=== PATIENT | male | born 1970 | race Caucasian/White ===

== ENCOUNTER 2018-06-20 09:54 | Inpatient (IN) | payer OTHER ==
[2018-06-20 11:07] VITALS: BMI 20.3
--- NOTE | 2018-06-20 14:13 | HP ---
Admission [facility] - [facility] Chief Complaint: I WANT TO GO TO REHAB Allergies/Adverse Reactions: Allergies Allergy/AdvReac Type Severity Reaction Status Date / Time Fish Containing Products Allergy Severe Hives Verified 06/20/18 12:26 NKDA Allergy Uncoded 06/20/18 12:26 History of Present Illness: 48 YEARS OLD MALE WITH LONG HISTORY OF OPIATE NICOTINE DEPENDENCE HAS COPD HEPATITIS C TREATED CHRONIC SORE ON RIGHT ELBOW HAS ANXIETY AND DEPRESSION TREATED WITH CELEXA 40 MG PO DAILY IS ADMITTED TO REHAB Exam Limitations: No Limitations - Ebola screening Have you traveled outside of the country in the last 21 days: No Have you had contact with anyone from an Ebola affected area: No Have you been sick,other than usual withdrawal symptoms: No Do you have a fever: No - Review of Systems Constitutional: Loss of Appetite, Unintentional Wgt. Loss, Unexplained wgt Loss EENT: reports: Blurred Vision (EYE GLASSES) Respiratory: reports: SOB with Exertion, Productive cough Cardiac: reports: No Symptoms Reported GI: reports: Indigestion : reports: No Symptoms Reported Musculoskeletal: reports: Back Pain Integumentary: reports: No Symptoms Reported Neuro: reports: No Symptoms reported Endocrine: reports: No Symptoms Reported Hematology: reports: No Symptoms Reported Psychiatric: reports: Judgement Intact, Orientated x3, Anxious, Depressed Other Systems: Reviewed and Negative Patient History - Patient Medical History Hx Anemia: No Hx Asthma: No Hx Chronic Obstructive Pulmonary Disease (COPD): Yes Hx Cancer: No Hx Cardiac Disorders: No Hx Congestive Heart Failure: No Hx Hypertension: No Hx Hypercholesterolemia: No Hx Pacemaker: No HX Cerebrovascular Accident: No Hx Seizures: No Hx Dementia: No Hx Diabetes: No Hx Gastrointestinal Disorders: Yes Hx Liver Disease: No Hx Genitourinary Disorders: No Hx Sexually Transmitted Disorders: No Hx Renal Disease (ESRD): No Hx Thyroid Disease: No Hx Human Immunodeficiency Virus (HIV): No Hx Hepatitis C: Yes (TREATED) Hx Depression: Yes Hx Suicide Attempt: No Hx Bipolar Disorder: No Hx Schizophrenia: No - Patient Surgical History Past Surgical History: No Hx Neurologic Surgery: No Hx Cataract Extraction: No Hx Cardiac Surgery: No Hx Lung Surgery: No Hx Breast Surgery: No Hx Breast Biopsy: No Hx Abdominal Surgery: No Hx Appendectomy: No Hx Cholecystectomy: No Hx Genitourinary Surgery: No Hx Orthopedic Surgery: No - PPD History Previous Implant?: Yes Documented Results: Negative w/o proof Implanted On Prior [facility] Admission?: No PPD to be Administered?: Yes - Smoking Cessation Smoking history: Current every day smoker Have you smoked in the past 12 months: Yes Aproximately how many cigarettes per day: 20 Cigars Per Day: 0 Hx Chewing Tobacco Use: No Initiated information on smoking cessation: Yes 'Breaking Loose' booklet given: 06/20/18 - Substance & Tx. History Hx Alcohol Use: No Hx Substance Use: Yes Substance Use Type: Cocaine Hx Substance Use Treatment: Yes (2016 [facility]) - Substances Abused Heroin Route: Inhalation Frequency: 3-6 times per week Amount used: 6-8 bags Age of first use: 41 Date of Last Use: 06/16/18 Cocaine Route: Smoking Frequency: 1-3 times last 30 days Amount used: $40 Age of first use: 19 Date of Last Use: 06/19/18 street methadone Route: Oral Frequency: No use in 30 days Amount used: 10 mg. Age of first use: 48 Date of Last Use: 06/18/18 Family Disease History - Family Disease History Family Disease History: Respiratory: Mother (), Sister, Other: Father ( /HEADTRAUMA), Mother Admission Physical Exam [facility] - Vital Signs Vital Signs: Vital Signs - 24 hr 06/20/18 11:05 Temperature 98.9 F Pulse Rate 79 Respiratory 17 Rate Blood Pressure 120/75 - Physical General Appearance: Yes: Nourished, Appropriately Dressed, Thin HEENTM: Yes: Hearing grossly Normal, Normocephalic, Normal Voice, Other (EYE GLASSES) Respiratory: Yes: Chest Non-Tender, No Respiratory Distress, No Accessory Muscle Use, Hyperresonant, Inspiration Neck: Yes: Supple, Trachea in good position Breast: Yes: Breasts Symetrical, No Discharge Cardiology: Yes: Regular Rhythm, Regular Rate, S1, S2 Abdominal: Yes: Normal Bowel Sounds, Non Tender, Flat, Soft Genitourinary: Yes: Within Normal Limits Back: Yes: Normal Inspection Musculoskeletal: Yes: full range of Motion, Gait Steady Extremities: Yes: Normal Inspection, Normal Range of Motion, Non-Tender Neurological: Yes: Fully Oriented, Alert, Motor Strength 5/5, Normal Response, Depressed Affect Integumentary: Yes: Warm Lymphatic: Yes: Within Normal Limits - Diagnostic (1) Opioid dependence with withdrawal Current Visit: Yes Status: Acute (2) GERD (gastroesophageal reflux disease) Current Visit: Yes Status: Chronic Qualifiers: Esophagitis presence: without esophagitis Qualified Code(s): K21.9 - Gastro -esophageal reflux disease without esophagitis (3) Nicotine dependence Current Visit: Yes Status: Acute Qualifiers: Nicotine product type: cigarettes Substance use status: in withdrawal Qualified Code(s): F17.213 - Nicotine dependence, cigarettes, with withdrawal (4) COPD (chronic obstructive pulmonary disease) Current Visit: Yes Status: Chronic Qualifiers: COPD type: emphysema (5) Hepatitis C Current Visit: No Status: Resolved Qualifiers: Hepatic coma status: without hepatic coma Comment: TREATED NONE DETECTED (6) Skin abrasion Current Visit: Yes Status: Acute Comment: LEFT ELBOW (7) Depression (emotion) Current Visit: Yes Status: Suspected Qualifiers: Depression Type: dysthymia Qualified Code(s): F34.1 - Dysthymic disorder (8) Infection, fungal, left foot Current Visit: Yes Status: Chronic Cleared for Admission [facility] - Detox or Rehab [facility] Level of Care: Observation Bed Detox Regimen/Protocol: Not Applicable Claeared for Rehab Admission: Yes [facility] Breath Alcohol Content Breath Alcohol Content: 0 Urine Drug Screen - Results Drug Screen Negative: No Urine Drug Screen Results: SABRINA-Cocaine Inpatient Rehab Admission - Initial Determination Are CD services needed?: Yes Free of communicable disease: Yes Not in need of hospitalization: Yes - Rehab Admission Criteria Previous failed treatment: Yes Poor recovery environment: Yes Comorbidities: Yes Lacks judgement: No Patient is meeting Inpatient Rehab admission criteria:: Yes
[2018-06-20] MEDS ORDERED: MAGNESIUM HYDROX 2400MG/30ML ORAL SUSPENSION 30 ML CUP PO PRN (14:18)
[2018-06-20] MEDS ORDERED: MAGNESIUM CITRATE 300 ML BOTTLE PO PRN (14:18)
[2018-06-20] MEDS ORDERED: P-EPHED 60MG/TRIPROLIDI 2.5MG TABLET PO PRN (14:18)
[2018-06-20] MEDS ORDERED: guaiFENesin/D-METHORPHAN HB 10 ML UNIT-DOSE CUPS PO PRN (14:18)
[2018-06-20] MEDS ORDERED: LOPERAMIDE HCL 2 MG CAPSULE PO PRN (14:18)
[2018-06-20] MEDS ORDERED: MENTHOL/PHENOL 1 EACH UD MM PRN (14:18)
[2018-06-20] MEDS ORDERED: ACETAMINOPHEN 325 MG TABLET (FP) PO PRN (14:18)
[2018-06-20] MEDS ORDERED: ALBUTEROL SO4 8 GM HFA INHALER IH PRN (14:19)
[2018-06-20] MEDS ORDERED: ALBUTEROL SO4 0.083% IH SOL 2.5 MG/3 ML VIAL.NEB. NEB PRN (14:21)
[2018-06-20] MEDS ORDERED: BACITRACIN 0.9 GM PACKET TP ONE (15:15)
[2018-06-20 17:13] LABS: URINE APPEARANCE CLEAR; URINE BILIRUBIN NEGATIVE (<2.0 mg/dL); URINE COLOR YELLOW; URINE GLUCOSE (UA) NEGATIVE (NEGATIVE); URINE KETONE NEGATIVE (NEGATIVE); URINE LEUK ESTERASE NEGATIVE (NEGATIVE); URINE NITRITE NEGATIVE (NEGATIVE); URINE PROTEIN NEGATIVE (NEGATIVE); URINE UROBILINOGEN NEGATIVE mg/dL (0.2-1.0)
[2018-06-20] MEDS ORDERED: TUBERCULIN PPD 5 TU/0.1ML VIAL ID ONE ×2 (18:06→18:13)
[2018-06-20] MEDS: NICOTINE 21 MG/24 HOURS TOPICAL PATCH TD SCH (18:09)
--- NOTE | 2018-06-20 18:14 | PN ---
S Progress Note Note: Vital Signs Temperature 98.9 F 06/20/18 11:05 Pulse Rate 79 06/20/18 11:05 Respiratory Rate 17 06/20/18 11:05 Blood Pressure 120/75 06/20/18 11:05 O2 Sat by Pulse Oximetry (%) c/o of headache ibuprofen 400 mg PRN increase fluids continue to monitor
[2018-06-20] MEDS: IBUPROFEN 400 MG TABLET (FP) PO PRN (18:32)
[2018-06-20] MEDS: CLOTRIMAZOLE 1% CREAM 15 GM TUBE TP SCH (22:04)
[2018-06-20] MEDS: BUDESONIDE/FORMETEROL FUMARATE 80/4.5 mcg INHALER IH SCH (22:04)
[2018-06-20] MEDS: THIAMINE HCL 100 MG TABLET (FP) PO SCH (22:04)
[2018-06-21] MEDS: PRENATAL VITAMINS W/ FOLIC ACID TABLET (FP) PO SCH (10:02)
[2018-06-21] MEDS: CLOTRIMAZOLE 1% CREAM 15 GM TUBE TP SCH ×2 (10:03→21:42)
[2018-06-21] MEDS: BUDESONIDE/FORMETEROL FUMARATE 80/4.5 mcg INHALER IH SCH ×2 (10:03→21:43)
[2018-06-21] MEDS: NICOTINE 21 MG/24 HOURS TOPICAL PATCH TD SCH (10:03)
[2018-06-21 10:11] LABS: HEMATOCRIT 42.4 % (35.4-49); HEMOGLOBIN 14.4 GM/dL (11.7-16.9); MCH 31.3 pg (25.7-33.7); MEAN CELL VOLUME 92.2 fl (80-96); MEAN PLT VOLUME 9.6 fl (7.5-11.1); PLATELET COUNT 211 K/MM3 (134-434); RDW 14.9 % (11.9-15.9); WHITE BLOOD COUNT 10.5 K/mm3 (4.0-10.0)
[2018-06-21 10:12] LABS: CHLORIDE 104 mmol/L (98-107); POTASSIUM 4.5 mmol/L (3.5-5.1); SODIUM 142 mmol/L (136-145)
[2018-06-21 10:47] LABS: ALK PHOS 75 U/L (45-117); ANION GAP 9 (8-16); BILIRUBIN,TOTAL 0.6 mg/dL (0.2-1.0); BLOOD UREA NITROGEN 25 mg/dL (7-18); CALCIUM 9.3 mg/dL (8.5-10.1); CO2 29 mmol/L (21-32); CREATININE 1.1 mg/dL (0.7-1.3); GLUCOSE,RANDOM 103 mg/dL (74-106); SGOT/AST 30 U/L (15-37); SGPT/ALT 51 U/L (12-78); TOT PROT 7.5 g/dl (6.4-8.2)
[2018-06-21] MEDS: CITALOPRAM HYDROBROMIDE 20 MG TABLET (FP) PO SCH (12:14)
--- NOTE | 2018-06-21 12:40 | PN ---
[facility] Progress Note Note: Vital Signs - 8 hr 06/21/18 06:37 Temperature 98.0 F Pulse Rate 69 Respiratory 16 Rate Blood Pressure 134/88 Laboratory Last Values WBC 10.5 K/mm3 (4.0-10.0) H 06/21/18 06:00 RBC 4.60 M/mm3 (4.00-5.60) 06/21/18 06:00 Hgb 14.4 GM/dL (11.7-16.9) 06/21/18 06:00 Hct 42.4 % (35.4-49) 06/21/18 06:00 MCV 92.2 fl (80-96) 06/21/18 06:00 MCH 31.3 pg (25.7-33.7) 06/21/18 06:00 MCHC 34.0 g/dl (32.0-35.9) 06/21/18 06:00 RDW 14.9 % (11.9-15.9) 06/21/18 06:00 Plt Count 211 K/MM3 (134-434) 06/21/18 06:00 MPV 9.6 fl (7.5-11.1) 06/21/18 06:00 Sodium 142 mmol/L (136-145) 06/21/18 06:00 Potassium 4.5 mmol/L (3.5-5.1) 06/21/18 06:00 Chloride 104 mmol/L (98-107) 06/21/18 06:00 Carbon Dioxide 29 mmol/L (21-32) 06/21/18 06:00 Anion Gap 9 (8-16) 06/21/18 06:00 BUN 25 mg/dL (7-18) H 06/21/18 06:00 Creatinine 1.1 mg/dL (0.7-1.3) 06/21/18 06:00 Creat Clearance w eGFR > 60 (>60) 06/21/18 06:00 Random Glucose 103 mg/dL (74-106) 06/21/18 06:00 Calcium 9.3 mg/dL (8.5-10.1) 06/21/18 06:00 Total Bilirubin 0.6 mg/dL (0.2-1.0) 06/21/18 06:00 AST 30 U/L (15-37) 06/21/18 06:00 ALT 51 U/L (12-78) 06/21/18 06:00 Alkaline Phosphatase 75 U/L (45-117) 06/21/18 06:00 Total Protein 7.5 g/dl (6.4-8.2) 06/21/18 06:00 Albumin 4.0 g/dl (3.4-5.0) 06/21/18 06:00 Urine Color Yellow 06/20/18 16:58 Urine Appearance Clear 06/20/18 16:58 Urine pH 7.0 (5.0-8.0) 06/20/18 16:58 Ur Specific [place] 1.024 (1.001-1.035) 06/20/18 16:58 Urine Protein Negative (NEGATIVE) 06/20/18 16:58 Urine Glucose (UA) Negative (NEGATIVE) 06/20/18 16:58 Urine Ketones Negative (NEGATIVE) 06/20/18 16:58 Urine Blood Negative (NEGATIVE) 06/20/18 16:58 Urine Nitrite Negative (NEGATIVE) 06/20/18 16:58 Urine Bilirubin Negative (<2.0 mg/dL) 06/20/18 16:58 Urine Urobilinogen Negative mg/dL (0.2-1.0) 06/20/18 16:58 Ur Leukocyte Esterase Negative (NEGATIVE) 06/20/18 16:58 HIV 1&2 Antibody Screen Negative 06/20/18 13:40 HIV P24 Antigen Negative 06/20/18 13:40 reviewed continue to monitor
[2018-06-21] MEDS: THIAMINE HCL 100 MG TABLET (FP) PO SCH (21:43)
[2018-06-22] MEDS: NICOTINE 21 MG/24 HOURS TOPICAL PATCH TD SCH (09:54)
[2018-06-22] MEDS: PRENATAL VITAMINS W/ FOLIC ACID TABLET (FP) PO SCH (09:54)
[2018-06-22] MEDS: CLOTRIMAZOLE 1% CREAM 15 GM TUBE TP SCH ×2 (09:54→21:11)
[2018-06-22] MEDS: CITALOPRAM HYDROBROMIDE 20 MG TABLET (FP) PO SCH (09:54)
[2018-06-22] MEDS: BUDESONIDE/FORMETEROL FUMARATE 80/4.5 mcg INHALER IH SCH ×2 (10:04→21:10)
--- NOTE | 2018-06-22 11:32 | HP ---
Psychiatrist Admission - Data Date of interview: 06/22/18 Admission source: [facility] Identifying data: This is the first [facility] admission for this 48 years old male, employed seasonally as a e business consultant, homeless Medical History: Significant for COPD and history of treatment for hepatitis C. Smokes cigarettes 1 ppd Psychiatric History: Reports being diagnosed with anxiety 10 years ago. Reports having been on multiple trials of different medications including Depakote, Trazaddone and now Celexa which he claims is very effective. He reports that up to August 2017 he was receiving OPD care at [facility] and was prescribed Celexa 40 mg po daily. Reports that he has not compliant with medication mostly due to his addiction. Denies previous psychiatric hospitalization or suicidal attempt. At present, reports feeling very depressed and sleeping poorly. Requests to be ordered Trazadone 50 mg po HS for insomnia Physical/Sexual Abuse/Trauma History: Denies history of emotional, physical or sexual abuse as well as DV relationship. No service Additional Comment: Denies criminal history Vital Signs: Vital Signs - 24 hr 06/22/18 06/22/18 06/22/18 00:30 03:30 06:39 Temperature 98.6 F Pulse Rate 74 Respiratory 18 18 18 Rate Blood Pressure 138/89 Allergies/Adverse Reactions: Allergies Allergy/AdvReac Type Severity Reaction Status Date / Time Fish Containing Products Allergy Severe Hives Verified 06/20/18 12:26 No Known Drug Allergies Allergy Unknown Verified 06/20/18 15:02 NKDA Allergy Uncoded 06/20/18 12:26 Date of last physical exam: 06/20/18 Concur with the findings of this exam: Yes - Substance Abuse/Tx History Hx Alcohol Use: No Hx Substance Use: Yes Substance Use Type: Cocaine (Started smoking crack cocaine at age 19, consumes $ 40 woth 1-3 times in the last 30 days. Last smoked on 06/19/18), Heroin (Started using heroin at age 41, consumes 6-8 bags daily. Last used on 06/16/18), Opiates (Started using street methadone at age 48, consumes 10 mg occasionally. Last used on 06/18/18) Hx Substance Use Treatment: Yes (2 previous inpt & 3-4 inpt rehab admissions) Mental Status Exam - Mental Status Exam Alert and Oriented to: Time, Place, Person Cognitive Function: Fair Patient Appearance: Well Groomed Mood: Depressed, Sad Affect: Appropriate Patient Behavior: Cooperative Speech Pattern: Clear Voice Loudness: Normal Thought Process: Intact Thought Disorder: Not Present Hallucinations: Denies Suicidal Ideation: Denies Homicidal Ideation: Denies Insight/Judgement: Fair Sleep: Poorly Appetite: Fair Muscle strength/Tone: Normal Gait/Station: Normal Psychiatric Findings - Problem List ([place] 1, 2,3) (1) Opioid dependence Current Visit: Yes Status: Acute (2) Cocaine dependence Current Visit: Yes Status: Acute (3) Nicotine dependence Current Visit: Yes Status: Chronic Qualifiers: Nicotine product type: cigarettes Substance use status: in withdrawal Qualified Code(s): F17.213 - Nicotine dependence, cigarettes, with withdrawal (4) Substance induced mood disorder Current Visit: Yes Status: Acute (5) Substance induced mood disorder Current Visit: Yes Status: Acute (6) Substance-induced sleep disorder Current Visit: Yes Status: Acute (7) COPD (chronic obstructive pulmonary disease) Current Visit: Yes Status: Chronic Qualifiers: COPD type: emphysema (8) GERD (gastroesophageal reflux disease) Current Visit: Yes Status: Chronic Qualifiers: Esophagitis presence: without esophagitis Qualified Code(s): K21.9 - Gastro -esophageal reflux disease without esophagitis (9) Hepatitis C Current Visit: No Status: Resolved Qualifiers: Hepatic coma status: without hepatic coma Comment: TREATED NONE DETECTED - Initial Treatment Plan Initial Treatment Plan: 1) Resume Celexa 40 mg po daily. 2) Start Trazadone 50 mg po HS. 3) Monitor progress
--- NOTE | 2018-06-22 12:50 | EKG ---
Test Reason : Blood Pressure : / mmHG Vent. Rate : 069 BPM Atrial Rate : 069 BPM P-R Int : 140 ms QRS Dur : 078 ms QT Int : 428 ms P-R-T Axes : 067 058 064 degrees QTc Int : 458 ms NORMAL SINUS RHYTHM NORMAL ECG NO PREVIOUS ECGS AVAILABLE Confirmed by RAKEL CROWELL MD ([id number]) on 06/22/2018 12:49:29 PM Referred By: Confirmed By:RAKEL CROWELL MD
[2018-06-22] MEDS: IBUPROFEN 400 MG TABLET (FP) PO PRN (19:17)
[2018-06-22] MEDS: traZODone HCL 50 MG TABLET (FP) PO SCH (21:10)
[2018-06-22] MEDS: THIAMINE HCL 100 MG TABLET (FP) PO SCH (21:10)
[2018-06-23] MEDS: CLOTRIMAZOLE 1% CREAM 15 GM TUBE TP SCH ×2 (10:09→21:30)
[2018-06-23] MEDS: BUDESONIDE/FORMETEROL FUMARATE 80/4.5 mcg INHALER IH SCH ×2 (10:09→21:30)
[2018-06-23] MEDS: PRENATAL VITAMINS W/ FOLIC ACID TABLET (FP) PO SCH (10:09)
[2018-06-23] MEDS: CITALOPRAM HYDROBROMIDE 20 MG TABLET (FP) PO SCH (10:09)
[2018-06-23] MEDS: NICOTINE 21 MG/24 HOURS TOPICAL PATCH TD SCH (10:09)
[2018-06-23] MEDS: NICOTINE POLACRILEX 4 MG GUM BUC PRN ×2 (14:25→18:42)
--- NOTE | 2018-06-23 17:12 | PN ---
[facility] Progress Note Note: Call received from MARELY Kumar re: patient c/o of withdrawal re: anxious, irritable, sx and will like to start suboxone therapy. I-stop reviewed : Reference #: [id number] Others' Prescriptions Patient Name: Dipesh Dsouza Date: 1970 Address: [address] [place] [address] Sex: Male Rx Written Rx Dispensed Drug Quantity Days Supply Prescriber Name 10/01/2017 10/02/2017 suboxone 4 mg-1 mg sl film 30 30 Daryl Calabrese MD 09/02/2017 09/05/2017 suboxone 8 mg-2 mg sl film 60 30 Daryl Calabrese MD Patient Name: Dipesh Dsouza Date: 1970 Address: [address] [place] [address] Sex: Male Rx Written Rx Dispensed Drug Quantity Days Supply Prescriber Name 08/05/2017 08/05/2017 suboxone 8 mg-2 mg sl film 60 30 Daryl Calabrese MD 07/08/2017 07/08/2017 suboxone 8 mg-2 mg sl film 60 30 Daryl Calabrese MD Vital Signs Temperature 98.2 F 06/23/18 07:13 Pulse Rate 77 06/23/18 07:13 Respiratory Rate 18 06/23/18 07:13 Blood Pressure 118/87 06/23/18 07:13 O2 Sat by Pulse Oximetry (%) vistaril PRN ordered pne time dose clonidine 0.1 mg increase fluids Patient needs to follow up with counselor for link to Suboxone maitance program , last received suboxone 10/02/17 and patient needs reinduction to suboxone therapy. will continue to monitor
[2018-06-23] MEDS: hydrOXYzine PAMOATE 50 MG CAPSULE (FP) PO PRN ×2 (17:19→21:29)
[2018-06-23] MEDS ORDERED: cloNIDine HCL 0.1 MG TABLET PO ONE (17:30)
--- NOTE | 2018-06-23 17:50 | PN ---
S Progress Note Note: c/o nausea and vomiting reports by MARELY julian PRN fluids as tolerate continue to monitor
[2018-06-23] MEDS: ONDANSETRON *ODT* 4 MG TABLET SL PRN (18:18)
[2018-06-23] MEDS: traZODone HCL 50 MG TABLET (FP) PO SCH (21:29)
[2018-06-23] MEDS: THIAMINE HCL 100 MG TABLET (FP) PO SCH (21:29)
[2018-06-24] MEDS: hydrOXYzine PAMOATE 50 MG CAPSULE (FP) PO PRN ×3 (09:50→21:21)
[2018-06-24] MEDS: CITALOPRAM HYDROBROMIDE 20 MG TABLET (FP) PO SCH (09:57)
[2018-06-24] MEDS: PRENATAL VITAMINS W/ FOLIC ACID TABLET (FP) PO SCH (09:57)
[2018-06-24] MEDS: ONDANSETRON *ODT* 4 MG TABLET SL PRN ×3 (09:59→21:20)
[2018-06-24] MEDS: CLOTRIMAZOLE 1% CREAM 15 GM TUBE TP SCH ×2 (11:13→21:23)
[2018-06-24] MEDS: BUDESONIDE/FORMETEROL FUMARATE 80/4.5 mcg INHALER IH SCH ×2 (11:13→21:23)
[2018-06-24] MEDS: NICOTINE 21 MG/24 HOURS TOPICAL PATCH TD SCH (11:13)
--- NOTE | 2018-06-24 11:23 | PN ---
S Progress Note Note: withdrawal symptom nausea,pain body,back Vital Signs Temperature 98.7 F 06/24/18 06:56 Pulse Rate 69 06/24/18 06:56 Respiratory Rate 18 06/24/18 06:56 Blood Pressure 117/64 06/24/18 06:56 O2 Sat by Pulse Oximetry (%) flexeril 10 mgs po tid prn clonidine 0.1 mg po bid zofran 4 mg sl film prn for nausea and vomiting close monitoring
[2018-06-24] MEDS ORDERED: CYCLOBENZAPRINE HCL 10 MG TABLET (FP) PO ONE (11:45)
[2018-06-24] MEDS: NICOTINE POLACRILEX 4 MG GUM BUC PRN (15:08)
[2018-06-24] MEDS: IBUPROFEN 400 MG TABLET (FP) PO PRN ×2 (16:48→22:15)
[2018-06-24] MEDS: THIAMINE HCL 100 MG TABLET (FP) PO SCH (21:20)
[2018-06-24] MEDS: traZODone HCL 50 MG TABLET (FP) PO SCH (21:20)
[2018-06-24] MEDS: CYCLOBENZAPRINE HCL 10 MG TABLET (FP) PO PRN (21:21)
[2018-06-24] MEDS: MELATONIN 5 MG TABLETS PO PRN (21:21)
[2018-06-25] MEDS: ONDANSETRON *ODT* 4 MG TABLET SL PRN ×2 (09:45→21:06)
[2018-06-25] MEDS: IBUPROFEN 400 MG TABLET (FP) PO PRN (09:48)
[2018-06-25] MEDS: CITALOPRAM HYDROBROMIDE 20 MG TABLET (FP) PO SCH (09:48)
[2018-06-25] MEDS: PRENATAL VITAMINS W/ FOLIC ACID TABLET (FP) PO SCH (09:48)
[2018-06-25] MEDS: NICOTINE 21 MG/24 HOURS TOPICAL PATCH TD SCH (09:49)
[2018-06-25] MEDS: CLOTRIMAZOLE 1% CREAM 15 GM TUBE TP SCH ×2 (09:49→21:47)
[2018-06-25] MEDS: BUDESONIDE/FORMETEROL FUMARATE 80/4.5 mcg INHALER IH SCH ×2 (09:52→21:47)
--- NOTE | 2018-06-25 10:32 | PN ---
S Progress Note Note: withdrawal symptom pain in the body,back,nausea,vomiting with diarrhea Vital Signs Temperature 98.8 F 06/25/18 06:46 Pulse Rate 69 06/25/18 06:46 Respiratory Rate 18 06/25/18 06:46 Blood Pressure 118/75 06/25/18 06:46 O2 Sat by Pulse Oximetry (%) pain in the body and back treatment flexeril 10 mgs po tid prn clonidine 0.1 mg po bid vistaril 50 mgs po q 6 hrs prn for vomiting close monitoring
[2018-06-25] MEDS: NICOTINE POLACRILEX 4 MG GUM BUC PRN (10:46)
[2018-06-25] MEDS: CYCLOBENZAPRINE HCL 10 MG TABLET (FP) PO PRN ×3 (10:46→21:05)
[2018-06-25] MEDS: cloNIDine HCL 0.1 MG TABLET PO SCH ×2 (10:46→21:04)
[2018-06-25] MEDS: hydrOXYzine PAMOATE 50 MG CAPSULE (FP) PO PRN (14:53)
[2018-06-25] MEDS: traZODone HCL 50 MG TABLET (FP) PO SCH (21:04)
[2018-06-25] MEDS: THIAMINE HCL 100 MG TABLET (FP) PO SCH (21:04)
[2018-06-25] MEDS: MELATONIN 5 MG TABLETS PO PRN (21:05)
[2018-06-26] MEDS: cloNIDine HCL 0.1 MG TABLET PO SCH ×2 (09:59→21:06)
[2018-06-26] MEDS: PRENATAL VITAMINS W/ FOLIC ACID TABLET (FP) PO SCH (09:59)
[2018-06-26] MEDS: CLOTRIMAZOLE 1% CREAM 15 GM TUBE TP SCH ×2 (09:59→21:08)
[2018-06-26] MEDS: CITALOPRAM HYDROBROMIDE 20 MG TABLET (FP) PO SCH (09:59)
[2018-06-26] MEDS: BUDESONIDE/FORMETEROL FUMARATE 80/4.5 mcg INHALER IH SCH ×2 (10:00→21:08)
[2018-06-26] MEDS: NICOTINE 21 MG/24 HOURS TOPICAL PATCH TD SCH (10:02)
[2018-06-26] MEDS: CYCLOBENZAPRINE HCL 10 MG TABLET (FP) PO PRN ×2 (10:03→17:27)
[2018-06-26] MEDS: IBUPROFEN 400 MG TABLET (FP) PO PRN (17:27)
[2018-06-26] MEDS: NICOTINE POLACRILEX 4 MG GUM BUC PRN (17:28)
[2018-06-26] MEDS: THIAMINE HCL 100 MG TABLET (FP) PO SCH (21:06)
[2018-06-26] MEDS: traZODone HCL 50 MG TABLET (FP) PO SCH (21:06)
[2018-06-26] MEDS: hydrOXYzine PAMOATE 50 MG CAPSULE (FP) PO PRN (21:07)
[2018-06-27] MEDS: CYCLOBENZAPRINE HCL 10 MG TABLET (FP) PO PRN ×2 (07:29→15:11)
[2018-06-27] MEDS: BUDESONIDE/FORMETEROL FUMARATE 80/4.5 mcg INHALER IH SCH ×2 (09:53→21:08)
[2018-06-27] MEDS: NICOTINE POLACRILEX 4 MG GUM BUC PRN (09:53)
[2018-06-27] MEDS: CITALOPRAM HYDROBROMIDE 20 MG TABLET (FP) PO SCH (09:53)
[2018-06-27] MEDS: NICOTINE 21 MG/24 HOURS TOPICAL PATCH TD SCH (09:53)
[2018-06-27] MEDS: PRENATAL VITAMINS W/ FOLIC ACID TABLET (FP) PO SCH (09:53)
[2018-06-27] MEDS: hydrOXYzine PAMOATE 50 MG CAPSULE (FP) PO PRN (09:57)
[2018-06-27] MEDS: cloNIDine HCL 0.1 MG TABLET PO SCH ×2 (09:57→21:08)
[2018-06-27] MEDS: CLOTRIMAZOLE 1% CREAM 15 GM TUBE TP SCH ×2 (10:33→21:08)
[2018-06-27] MEDS: MAG HYDROX/AL HYDROX/SIMETH 30 ML UNIT-DOSE CUP PO PRN (18:24)
--- NOTE | 2018-06-27 19:06 | PN ---
[facility] Progress Note Note: Psychiatrist consulting networking engineer note: Called by nursing staff requesting an increase in Trazadone dosage on behalf of patient. According to nursing staff, patient complains of sleeping poorly despite taking Trazadone 50 mg at bedtime. Trazadone dosage is increased to 100 mg po HS
[2018-06-27] MEDS: THIAMINE HCL 100 MG TABLET (FP) PO SCH (21:08)
[2018-06-27] MEDS: traZODone HCL 100 MG TABLET (FP) PO SCH (21:09)
[2018-06-27] MEDS: MELATONIN 5 MG TABLETS PO PRN (21:09)
[2018-06-28] MEDS: IBUPROFEN 400 MG TABLET (FP) PO PRN ×2 (08:02→16:06)
[2018-06-28] MEDS: CYCLOBENZAPRINE HCL 10 MG TABLET (FP) PO PRN ×3 (08:03→21:07)
[2018-06-28] MEDS ORDERED: PT OWN MED DRAWER 7, Y5N ONE (09:00)
[2018-06-28] MEDS: PRENATAL VITAMINS W/ FOLIC ACID TABLET (FP) PO SCH (10:02)
[2018-06-28] MEDS: NICOTINE 21 MG/24 HOURS TOPICAL PATCH TD SCH ×2 (10:02→10:05)
[2018-06-28] MEDS: cloNIDine HCL 0.1 MG TABLET PO SCH ×2 (10:02→21:05)
[2018-06-28] MEDS: CITALOPRAM HYDROBROMIDE 20 MG TABLET (FP) PO SCH (10:03)
[2018-06-28] MEDS: BUDESONIDE/FORMETEROL FUMARATE 80/4.5 mcg INHALER IH SCH ×2 (10:04→22:46)
[2018-06-28] MEDS: CLOTRIMAZOLE 1% CREAM 15 GM TUBE TP SCH ×2 (10:04→22:46)
[2018-06-28] MEDS: ONDANSETRON *ODT* 4 MG TABLET SL PRN (18:13)
[2018-06-28] MEDS: MAG HYDROX/AL HYDROX/SIMETH 30 ML UNIT-DOSE CUP PO PRN (19:30)
[2018-06-28] MEDS: MELATONIN 5 MG TABLETS PO PRN (21:06)
[2018-06-28] MEDS: traZODone HCL 100 MG TABLET (FP) PO SCH (21:06)
[2018-06-28] MEDS: THIAMINE HCL 100 MG TABLET (FP) PO SCH (21:06)
[2018-06-29] MEDS: CYCLOBENZAPRINE HCL 10 MG TABLET (FP) PO PRN ×2 (08:33→19:43)
[2018-06-29] MEDS: cloNIDine HCL 0.1 MG TABLET PO SCH ×2 (09:32→21:06)
[2018-06-29] MEDS: CITALOPRAM HYDROBROMIDE 20 MG TABLET (FP) PO SCH (09:32)
[2018-06-29] MEDS: PRENATAL VITAMINS W/ FOLIC ACID TABLET (FP) PO SCH (09:32)
[2018-06-29] MEDS: CLOTRIMAZOLE 1% CREAM 15 GM TUBE TP SCH ×2 (09:33→21:07)
[2018-06-29] MEDS: BUDESONIDE/FORMETEROL FUMARATE 80/4.5 mcg INHALER IH SCH ×2 (09:33→21:07)
[2018-06-29] MEDS: NICOTINE 21 MG/24 HOURS TOPICAL PATCH TD SCH (09:33)
--- NOTE | 2018-06-29 11:12 | PN ---
Psychiatric Progress Note Vital Signs: Vital Signs Period Temp Pulse Resp BP Sys/Cabrera Pulse Ox Last 24 Hr 98.1 F 81 18-18 106/70 Date of Session: 06/29/18 Chief Complaint:: Insomnia HPI: Patient addressing Opioid and Cocaine Dependence comorbid with Nicotine Dependence, Substance-Induced mood Disorder and Substance-Induced Sleep disorder ROS: COPD, GERD, Hep C Current Medications: Active Medications Generic Name Dose Route Start Last Admin Trade Name Freq PRN Reason Stop Dose Admin Acetaminophen 650 mg 06/20/18 14:18 06/25/18 14:53 Tylenol - PO 650 mg Q4H PRN Administration FEVER Al Hydroxide/Mg Hydroxide 30 ml 06/20/18 14:18 06/28/18 19:30 Mylanta Oral Suspension - PO 30 ml Q6H PRN Administration DYSPEPSIA Albuterol Sulfate 2 puff 06/20/18 14:19 Ventolin Hfa Inhaler - IH Q4H PRN ASTHMA Budesonide/Formoterol Fumarate 2 puff 06/20/18 22:00 06/29/18 09:33 Symbicort 80/4.5mcg - IH Not Given BID IGNACIO Citalopram Hydrobromide 40 mg 06/21/18 12:00 06/29/18 09:32 Celexa - PO 40 mg DAILY IGNACIO Administration Clonidine 0.1 mg 06/25/18 10:45 06/29/18 09:32 Catapres - PO 0.1 mg BID IGNACIO Administration Clotrimazole 1 applic 06/20/18 22:00 06/29/18 09:33 Lotrimin 1% Cream - TP Not Given BID IGNACIO Cyclobenzaprine HCl 10 mg 06/24/18 11:19 06/29/18 08:33 Flexeril - PO 10 mg TID PRN Administration MUSCLE SPASMS Eucalyptus/Menthol/Phenol/Sorbitol 1 each 06/20/18 14:18 Cepastat Lozenge - MM Q4H PRN SORE THROAT Guaifenesin 10 ml 06/20/18 14:18 Robitussin Dm - PO Q6H PRN COUGH Hydroxyzine Pamoate 50 mg 06/23/18 16:58 06/27/18 09:57 Vistaril - PO 50 mg Q4H PRN Administration FOR ITCHING Ibuprofen 400 mg 06/20/18 18:13 06/28/18 16:06 Motrin - PO 400 mg Q6H PRN Administration PAIN LEVEL 6-10 Loperamide HCl 4 mg 06/20/18 14:18 Imodium - PO Q6H PRN DIARRHEA Magnesium Citrate 300 ml 06/20/18 14:18 Citroma - PO Q48H PRN CONSTIPATION Magnesium Hydroxide 30 ml 06/20/18 14:18 Milk Of Magnesia - PO DAILY PRN CONSTIPATION Melatonin 5 mg 06/20/18 22:00 06/28/18 21:06 Melatonin PO 5 mg HS PRN Administration INSOMNIA Nicotine 21 mg 06/20/18 15:15 06/29/18 09:33 Nicoderm Patch - TD Not Given DAILY IGNACIO Nicotine Polacrilex 4 mg 06/20/18 14:18 06/27/18 09:53 Nicorette Gum - BUC 4 mg Q2H PRN Administration NICOTINE REPLACEMENT RX Ondansetron HCl 8 mg 06/23/18 17:49 06/28/18 18:13 Zofran Odt - SL 8 mg Q6H PRN Administration NAUSEA AND/OR VOMITING Multivit/Folic Acid/Iron 1 tab 06/21/18 10:00 06/29/18 09:32 Vitamins ([facility]) - PO 1 tab DAILY IGNACIO Administration Pseudoephedrine/Triprolidine 1 combo 06/20/18 14:18 Actifed - PO TID PRN NASAL CONGESTION Thiamine HCl 100 mg 06/20/18 22:00 06/28/18 21:06 Vitamin B1 - PO 100 mg HS IGNACIO Administration Medication(s) Change(s): Increase Trazadone dosage to 150 mg po HS Current Side Effect: No Lab tests ordered: Yes Lab tests reviewed: Yes Provider note:: Patient reports sleeping poorly as well as feeling anxious. He is currently on Trazadone 100 mg po HS and Vistaril 50 mg o Q 4hrs prn for anxiety. Apparently he has not been using his Vistaril prescription much and most probably he is aware of it. He was made aware of it and was encouraged to use it as needed. Trazadone dosage is inceased to 150 mg po HS Total face to face time:: 15 Mental Status Exam - Mental Status Exam Alert and Oriented to: Time, Place, Person Cognitive Function: Fair Patient Appearance: Well Groomed Mood: Anxious Affect: Appropriate Patient Behavior: Cooperative Speech Pattern: Clear Voice Loudness: Normal Thought Disorder: Not Present Hallucinations: Denies Suicidal Ideation: Denies Homicidal Ideation: Denies Insight/Judgement: Fair Sleep: Poorly Appetite: Good Muscle strength/Tone: Normal Gait/Station: Normal Psychiatric Treatment Plan - Problem List (1) Opioid dependence Current Visit: Yes (2) Cocaine dependence Current Visit: Yes (3) Nicotine dependence Current Visit: Yes Qualifiers: Nicotine product type: cigarettes Substance use status: in withdrawal Qualified Code(s): F17.213 - Nicotine dependence, cigarettes, with withdrawal (4) Substance induced mood disorder Current Visit: Yes (5) Substance induced mood disorder Current Visit: Yes (6) Substance-induced sleep disorder Current Visit: Yes (7) COPD (chronic obstructive pulmonary disease) Current Visit: Yes Qualifiers: COPD type: emphysema (8) GERD (gastroesophageal reflux disease) Current Visit: Yes Qualifiers: Esophagitis presence: without esophagitis Qualified Code(s): K21.9 - Gastro -esophageal reflux disease without esophagitis (9) Hepatitis C Current Visit: No Qualifiers: Hepatic coma status: without hepatic coma Comment: TREATED NONE DETECTED Initial treatment plan: 1) Discontinue Trazadone as currently ordered. 2) Start Trazadone 150 mg po HS. 3) Monitor progress
[2018-06-29] MEDS: hydrOXYzine PAMOATE 50 MG CAPSULE (FP) PO PRN (14:02)
[2018-06-29] MEDS: MAG HYDROX/AL HYDROX/SIMETH 30 ML UNIT-DOSE CUP PO PRN (15:35)
--- NOTE | 2018-06-29 19:37 | PN ---
[facility] Progress Note Note: c/o of indigestion with throat irritation, no relief after taking mylanta start protonix qd fluids as tolerated continue to monito
[2018-06-29] MEDS: PANTOPRAZOLE 20 MG TABLET (FP) PO SCH (19:43)
[2018-06-29] MEDS: traZODone HCL 50 MG TABLET (FP) PO SCH (21:06)
[2018-06-29] MEDS: THIAMINE HCL 100 MG TABLET (FP) PO SCH (21:06)
[2018-06-29] MEDS: MELATONIN 5 MG TABLETS PO PRN (21:07)
[2018-06-30] MEDS: CYCLOBENZAPRINE HCL 10 MG TABLET (FP) PO PRN (08:19)
[2018-06-30] MEDS: BUDESONIDE/FORMETEROL FUMARATE 80/4.5 mcg INHALER IH SCH ×2 (09:54→21:08)
[2018-06-30] MEDS: CLOTRIMAZOLE 1% CREAM 15 GM TUBE TP SCH ×2 (09:54→21:08)
[2018-06-30] MEDS: NICOTINE 21 MG/24 HOURS TOPICAL PATCH TD SCH (09:55)
[2018-06-30] MEDS: CITALOPRAM HYDROBROMIDE 20 MG TABLET (FP) PO SCH (09:55)
[2018-06-30] MEDS: cloNIDine HCL 0.1 MG TABLET PO SCH ×2 (09:55→21:07)
[2018-06-30] MEDS: NICOTINE POLACRILEX 4 MG GUM BUC PRN (09:55)
[2018-06-30] MEDS: PRENATAL VITAMINS W/ FOLIC ACID TABLET (FP) PO SCH (09:55)
[2018-06-30] MEDS: PANTOPRAZOLE 20 MG TABLET (FP) PO SCH (09:55)
[2018-06-30] MEDS: MAG HYDROX/AL HYDROX/SIMETH 30 ML UNIT-DOSE CUP PO PRN (16:52)
[2018-06-30] MEDS: THIAMINE HCL 100 MG TABLET (FP) PO SCH (21:07)
[2018-06-30] MEDS: traZODone HCL 50 MG TABLET (FP) PO SCH (21:07)
[2018-06-30] MEDS: MELATONIN 5 MG TABLETS PO PRN (21:08)
[2018-07-01] MEDS: cloNIDine HCL 0.1 MG TABLET PO SCH ×2 (09:44→21:05)
[2018-07-01] MEDS: BUDESONIDE/FORMETEROL FUMARATE 80/4.5 mcg INHALER IH SCH ×2 (09:44→21:05)
[2018-07-01] MEDS: CITALOPRAM HYDROBROMIDE 20 MG TABLET (FP) PO SCH (09:44)
[2018-07-01] MEDS: PANTOPRAZOLE 20 MG TABLET (FP) PO SCH (09:44)
[2018-07-01] MEDS: PRENATAL VITAMINS W/ FOLIC ACID TABLET (FP) PO SCH (09:44)
[2018-07-01] MEDS: CLOTRIMAZOLE 1% CREAM 15 GM TUBE TP SCH ×2 (09:45→21:05)
[2018-07-01] MEDS: NICOTINE 21 MG/24 HOURS TOPICAL PATCH TD SCH (09:45)
[2018-07-01] MEDS: CYCLOBENZAPRINE HCL 10 MG TABLET (FP) PO PRN (13:06)
[2018-07-01] MEDS: NICOTINE POLACRILEX 4 MG GUM BUC PRN ×2 (13:06→21:07)
[2018-07-01] MEDS: MAG HYDROX/AL HYDROX/SIMETH 30 ML UNIT-DOSE CUP PO PRN (18:38)
[2018-07-01] MEDS: traZODone HCL 50 MG TABLET (FP) PO SCH (21:04)
[2018-07-01] MEDS: THIAMINE HCL 100 MG TABLET (FP) PO SCH (21:05)
[2018-07-01] MEDS: IBUPROFEN 400 MG TABLET (FP) PO PRN (21:05)
[2018-07-01] MEDS: MELATONIN 5 MG TABLETS PO PRN (21:07)
[2018-07-02] MEDS: BUDESONIDE/FORMETEROL FUMARATE 80/4.5 mcg INHALER IH SCH ×2 (09:59→21:06)
[2018-07-02] MEDS: cloNIDine HCL 0.1 MG TABLET PO SCH ×2 (10:00→21:06)
[2018-07-02] MEDS: CLOTRIMAZOLE 1% CREAM 15 GM TUBE TP SCH ×2 (10:00→21:06)
[2018-07-02] MEDS: CITALOPRAM HYDROBROMIDE 20 MG TABLET (FP) PO SCH (10:00)
[2018-07-02] MEDS: PANTOPRAZOLE 20 MG TABLET (FP) PO SCH (10:00)
[2018-07-02] MEDS: PRENATAL VITAMINS W/ FOLIC ACID TABLET (FP) PO SCH (10:00)
[2018-07-02] MEDS: CYCLOBENZAPRINE HCL 10 MG TABLET (FP) PO PRN (10:01)
[2018-07-02] MEDS: NICOTINE 21 MG/24 HOURS TOPICAL PATCH TD SCH (10:02)
[2018-07-02] MEDS: NICOTINE POLACRILEX 4 MG GUM BUC PRN ×2 (10:02→17:38)
[2018-07-02] MEDS: traZODone HCL 50 MG TABLET (FP) PO SCH (21:06)
[2018-07-02] MEDS: THIAMINE HCL 100 MG TABLET (FP) PO SCH (21:06)
[2018-07-02] MEDS: IBUPROFEN 400 MG TABLET (FP) PO PRN (21:08)
[2018-07-03] MEDS: CYCLOBENZAPRINE HCL 10 MG TABLET (FP) PO PRN (06:07)
[2018-07-03 06:39] VITALS: BP 118/83; PULSE 79; TEMP 98
--- NOTE | 2018-07-03 07:10 | PN ---
Psychiatric Progress Note Vital Signs: Vital Signs Period Temp Pulse Resp BP Sys/Cabrera Pulse Ox Last 24 Hr 97.8 F-98.0 F 79-97 16-18 105-118/69-83 Date of Session: 07/03/18 Chief Complaint:: Discharge Note HPI: Patient addressing Opioid and Cocaine Dependence comorbid with Nicotine Dependence, Substance-Induced Mood Disorder and Substance-Induced Sleep Disorder ROS: COPD, GERD, Hep C Current Medications: Active Medications Generic Name Dose Route Start Last Admin Trade Name Freq PRN Reason Stop Dose Admin Acetaminophen 650 mg 06/20/18 14:18 06/25/18 14:53 Tylenol - PO 650 mg Q4H PRN Administration FEVER Al Hydroxide/Mg Hydroxide 30 ml 06/20/18 14:18 07/01/18 18:38 Mylanta Oral Suspension - PO 30 ml Q6H PRN Administration DYSPEPSIA Albuterol Sulfate 2 puff 06/20/18 14:19 Ventolin Hfa Inhaler - IH Q4H PRN ASTHMA Budesonide/Formoterol Fumarate 2 puff 06/20/18 22:00 07/02/18 21:06 Symbicort 80/4.5mcg - IH Not Given BID IGNACIO Citalopram Hydrobromide 40 mg 06/21/18 12:00 07/02/18 10:00 Celexa - PO 40 mg DAILY IGNACIO Administration Clonidine 0.1 mg 06/25/18 10:45 07/02/18 21:06 Catapres - PO 0.1 mg BID IGNACIO Administration Clotrimazole 1 applic 06/20/18 22:00 07/02/18 21:06 Lotrimin 1% Cream - TP Not Given BID IGNACIO Cyclobenzaprine HCl 10 mg 06/24/18 11:19 07/03/18 06:07 Flexeril - PO 10 mg TID PRN Administration MUSCLE SPASMS Eucalyptus/Menthol/Phenol/Sorbitol 1 each 06/20/18 14:18 Cepastat Lozenge - MM Q4H PRN SORE THROAT Guaifenesin 10 ml 06/20/18 14:18 Robitussin Dm - PO Q6H PRN COUGH Hydroxyzine Pamoate 50 mg 06/23/18 16:58 06/29/18 14:02 Vistaril - PO 50 mg Q4H PRN Administration FOR ITCHING Ibuprofen 400 mg 06/20/18 18:13 07/02/18 21:08 Motrin - PO 400 mg Q6H PRN Administration PAIN LEVEL 6-10 Loperamide HCl 4 mg 06/20/18 14:18 Imodium - PO Q6H PRN DIARRHEA Magnesium Citrate 300 ml 06/20/18 14:18 Citroma - PO Q48H PRN CONSTIPATION Magnesium Hydroxide 30 ml 06/20/18 14:18 Milk Of Magnesia - PO DAILY PRN CONSTIPATION Melatonin 5 mg 06/20/18 22:00 07/01/18 21:07 Melatonin PO 5 mg HS PRN Administration INSOMNIA Nicotine 21 mg 06/20/18 15:15 07/02/18 10:02 Nicoderm Patch - TD Not Given DAILY IGNACIO Nicotine Polacrilex 4 mg 06/20/18 14:18 07/02/18 17:38 Nicorette Gum - BUC 4 mg Q2H PRN Administration NICOTINE REPLACEMENT RX Ondansetron HCl 8 mg 06/23/18 17:49 06/28/18 18:13 Zofran Odt - SL 8 mg Q6H PRN Administration NAUSEA AND/OR VOMITING Pantoprazole Sodium 20 mg 06/29/18 19:45 07/02/18 10:00 Protonix - PO 20 mg DAILY IGNACIO Administration Multivit/Folic Acid/Iron 1 tab 06/21/18 10:00 07/02/18 10:00 Vitamins (Sjr) - PO 1 tab DAILY IGNACIO Administration Pseudoephedrine/Triprolidine 1 combo 06/20/18 14:18 Actifed - PO TID PRN NASAL CONGESTION Thiamine HCl 100 mg 06/20/18 22:00 07/02/18 21:06 Vitamin B1 - PO 100 mg HS IGNACIO Administration Trazodone HCl 150 mg 06/29/18 22:00 07/02/18 21:06 Desyrel - PO 150 mg HS IGNACIO Administration Current Side Effect: No Lab tests ordered: Yes Lab tests reviewed: Yes Provider note:: Patient has completed this program today. He has met his treatment goals and will continue to address his issues in outpatient treatment at [facility] at [address] [place] [address]. 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 . He responded well to Celexa 40 mg po daily and Trazadone 150 mg po HS. Scripts for these medications are electronically transmitted to [facility]. He is stable for discharge today Total face to face time:: 35 Psychiatric Treatment Plan - Problem List (1) Opioid dependence Current Visit: Yes (2) Cocaine dependence Current Visit: Yes (3) Nicotine dependence Current Visit: Yes Qualifiers: Nicotine product type: cigarettes Substance use status: in withdrawal Qualified Code(s): F17.213 - Nicotine dependence, cigarettes, with withdrawal (4) Substance induced mood disorder Current Visit: Yes (5) Substance induced mood disorder Current Visit: Yes (6) Substance-induced sleep disorder Current Visit: Yes (7) COPD (chronic obstructive pulmonary disease) Current Visit: Yes Qualifiers: COPD type: emphysema (8) GERD (gastroesophageal reflux disease) Current Visit: Yes Qualifiers: Esophagitis presence: without esophagitis Qualified Code(s): K21.9 - Gastro -esophageal reflux disease without esophagitis (9) Hepatitis C Current Visit: No Qualifiers: Hepatic coma status: without hepatic coma Comment: TREATED NONE DETECTED Initial treatment plan: Patient is discharged today and referred to [facility] for outpatient treatment
[2018-07-03] MEDS: CITALOPRAM HYDROBROMIDE 20 MG TABLET (FP) PO SCH (09:08)
[2018-07-03] MEDS: cloNIDine HCL 0.1 MG TABLET PO SCH (09:08)
[2018-07-03] MEDS: PRENATAL VITAMINS W/ FOLIC ACID TABLET (FP) PO SCH (09:08)
[2018-07-03] MEDS: PANTOPRAZOLE 20 MG TABLET (FP) PO SCH (09:08)
[2018-07-03] MEDS: CLOTRIMAZOLE 1% CREAM 15 GM TUBE TP SCH (09:08)
[2018-07-03] MEDS: BUDESONIDE/FORMETEROL FUMARATE 80/4.5 mcg INHALER IH SCH (09:08)
[2018-07-03] MEDS: NICOTINE 21 MG/24 HOURS TOPICAL PATCH TD SCH (09:09)
== END 2018-07-03 10:30 | disposition home or self-care (01) | DRG 772 ==
LOC: YASAS 09:54 → Y5N 14:52
PROVIDERS: ADMIT Psychiatry & Neurology Psychiatry; ATTEND Psychiatry & Neurology Psychiatry
PROC: HZ42ZZZ Group Counseling for Substance Abuse Treatment, Cognitive-Behavioral (ICD-10-PCS; principal; 2018-06-20)
DX: F11.23 Opioid dependence with withdrawal (principal); F14.20 Cocaine dependence, uncomplicated; F17.210 Nicotine dependence, cigarettes, uncomplicated; F19.24 Other psychoactive substance dependence with psychoactive substance-induced mood disorder; F19.282 Other psychoactive substance dependence with psychoactive substance-induced sleep disorder; F34.1 Dysthymic disorder; J44.9 Chronic obstructive pulmonary disease, unspecified; K21.9 Gastro-esophageal reflux disease without esophagitis; B18.2 Chronic viral hepatitis C; R11.2 Nausea with vomiting, unspecified; R19.7 Diarrhea, unspecified; B35.3 Tinea pedis; Z59.0 Homelessness
CPT/HCPCS: 36415; 80053; 81003; 85027; 86593; 87389; 93005; 93010; J0735; Q0162